=== PATIENT | male | born 1965 | race Caucasian/White ===

== ENCOUNTER → 2021-04-08 | Outpatient (CLI) | payer OTHER ==
--- NOTE | 2021-04-08 12:05 | XR ---
Left hand HISTORY: Pain for 2 weeks following work injury, Q29.377T 3 views of the left hand, no comparisons Flexion deformity is noted at the fifth digit. Bone mineralization, joint spaces are maintained. Smal l benign bony excrescence is noted at the lateral aspect of the distal portion of the distal phalanx of the third digit left hand, possible small osteochondroma. Lateral exam not optimally positioned. IMPRESSION: Flexion deformity fifth digit, correlate for possible tendon injury. Possible osteochondr volodymyr third digit distally.
== END | disposition home or self-care (01) ==
LOC: RADXRMAIN 11:35
PROVIDERS: ATTEND Emergency Medicine
DX: M79.642 Pain in left hand (principal); S69.92XA Unspecified injury of left wrist, hand and finger(s), initial encounter

== ENCOUNTER → 2021-08-09 | Outpatient (CLI) | payer OTHER ==
--- NOTE | 2021-08-09 13:27 | XR ---
EXAMINATION TYPE: XR cervical spine comp DATE OF EXAM: 08/09/2021 COMPARISON: 06/01/2014 HISTORY: Numbness tingling in bilateral hands TECHNIQUE: 5 view cervical spine FINDINGS: Mild left foraminal narrowing of C3-4 may be present. Remaining foramen are patent. Tip of the odontoid is limited with overlying occiput. Disc heights appear preserved. Vertebral body heights are preserved. Posterior spinal lamellar line i s normal. Mild anterior vertebral body spurring is present C4-C6. IMPRESSION: 1. Mild foraminal narrowing left C3-4. 2. Minimal anterior vertebral body spurring.
== END | disposition home or self-care (01) ==
LOC: RADXRMAIN 10:09
PROVIDERS: ATTEND Family Medicine
DX: M99.71 Connective tissue and disc stenosis of intervertebral foramina of cervical region (principal); M25.78 Osteophyte, vertebrae
CPT/HCPCS: 72050

== ENCOUNTER 2023-08-12 06:26 | Observation (INO) | payer OTHER ==
--- NOTE | 2023-08-12 07:38 | ED ---
Abdominal Pain HPI - General Chief Complaint: Abdominal Pain Stated Complaint: abd pain Time Seen by Provider: 08/12/23 06:33 Source: patient, RN notes reviewed Mode of arrival: ambulatory Limitations: no limitations - History of Present Illness Initial Comments: 58-year-old male presents emergency department with chief complaint of abdominal pain. Patient states he has epigastric discomfort he states that counter it radiates across his abdomen. He does admit that he has some sensation of tightness in his throat denies any significant known of reflux issues. He denies fevers, chills, prior cardiac disease denies any prior abdominal surgeries. He states he feels very bloated, distended. - Related Data Home Medications Medication Instructions Recorded Confirmed Rosuvastatin Calcium 5 mg PO DAILY 08/12/23 08/12/23 Allergies Allergy/AdvReac Type Severity Reaction Status Date / Time No Known Allergies Allergy Verified 08/12/23 10:07 Review of Systems ROS Statement: Those systems with pertinent positive or pertinent negative responses have been documented in the HPI. ROS Other: All systems not noted in ROS Statement are negative. Past Medical History Past Medical History: No Reported History History of Any Multi-Drug Resistant Organisms: None Reported Past Surgical History: Orthopedic Surgery Additional Past Surgical History / Comment(s): hand Past Psychological History: No Psychological Hx Reported Past Alcohol Use History: Occasional Past Drug Use History: None Reported General Exam Limitations: no limitations General appearance: alert, in no apparent distress Head exam: Present: atraumatic, normocephalic, normal inspection Neck exam: Present: normal inspection, full ROM. Absent: tenderness, meningismus, lymphadenopathy Respiratory exam: Present: normal lung sounds bilaterally. Absent: respiratory distress, wheezes, rales, rhonchi, stridor Cardiovascular Exam: Present: regular rate, normal rhythm, normal heart sounds. Absent: systolic murmur, diastolic murmur, rubs, gallop, clicks GI/Abdominal exam: Present: soft, tenderness, normal bowel sounds. Absent: distended, guarding, rebound, rigid Back exam: Absent: CVA tenderness (R), CVA tenderness (L) Neurological exam: Present: alert Skin exam: Present: warm, dry, intact, normal color. Absent: rash Course Vital Signs 08/12/23 06:27 Temperature 97.8 F Pulse Rate 91 Respiratory 18 Rate Blood Pressure 152/92 O2 Sat by Pulse 100 Oximetry Medical Decision Making - Medical Decision Making Was pt. sent in by a medical professional or institution ([facility], GAME TECHNICIAN, urgent care, hospital, or penitentiary...) When possible be specific @ -No Did you speak to anyone other than the patient for history (EMS, parent, family, police, friend...)? What history was obtained from this source @ -No Did you review nursing and triage notes (agree or disagree)? Why? @ -I reviewed and agree with nursing and triage notes Were old charts reviewed (outside hosp., previous admission, EMS record, old EKG, old radiological studies, urgent care reports/EKG's, penitentiary records)? Report findings @ -No old charts were reviewed Differential Diagnosis (chest pain, altered mental status, abdominal pain women, abdominal pain men, vaginal bleeding, weakness, fever, dyspnea, syncope, headache, dizziness, GI bleed, back pain, seizure, CVA, palpatations, mental health, musculoskeletal)? @ -[Differential Abdominal Pain Men: Appendicitis, cholecystitis, diverticulosis, ischemic bowel, pancreatitis, hepatitis, UTI, gastroenteritis, AAA, incarcerated hernia, bowel obstruction, constipation, inflammatory bowel, hepatitis, peptic ulcer disease, splenic infarction, perforated viscus, testicular torsion, this is not meant to be an all-inclusive list EKG interpreted by me (3pts min.). @ -As above X-rays interpreted by me (1pt min.). @ -[Chest extremity no acute cardiopulmonary process X-ray KUB nonspecific bowel gas pattern CT interpreted by me (1pt min.). @ -None done U/S interpreted by me (1pt. min.). @ -[Altered gallbladder showing large essentially non mobile gallstone within the neck What testing was considered but not performed or refused? (CT, X-rays, U/S, labs)? Why? @ -None What meds were considered but not given or refused? Why? @ -None Did you discuss the management of the patient with other professionals (professionals i.e. [facility], GAME TECHNICIAN, lab, RT, psych nurse, addiction social worker, sprinkling system installer, teacher, data officer, case advocate)? Give summary @ -[Dr. Machado for admission regarding acute cholecystitis with cholelithiasis Was smoking cessation discussed for >3mins.? @ -No Was critical care preformed (if so, how long)? @ -No Were there social determinants of health that impacted care today? How? (Homelessness, low income, unemployed, alcoholism, drug addiction, transportation, low edu. Level, literacy, decrease access to med. care, long term, rehab)? @ -No Was there de-escalation of care discussed even if they declined (Discuss DNR or withdrawal of care, Hospice)? DNR status @ -No What co-morbidities impacted this encounter? (DM, HTN, Smoking, COPD, CAD, Cancer, CVA, ARF, Chemo, Hep., AIDS, mental health diagnosis, sleep apnea, morbid obesity)? @ -None Was patient admitted / discharged? Hospital course, mention meds given and route, prescriptions, significant lab abnormalities, going to OR and other pertinent info. @ -[Admitted patient found to have gallstone within the gallbladder neck causing persistent pain. Patient was started on antibiotics admitted surgeon will have cardiac clearance. Undiagnosed new problem with uncertain prognosis? @ -No Drug Therapy requiring intensive monitoring for toxicity (Heparin, Nitro, Insulin, Cardizem)? @ -No Were any procedures done? @ -No Diagnosis/symptom? @ -Acute cholecystitis, cholelithiasis Acute, or Chronic, or Acute on Chronic? @ -[Acute Uncomplicated (without systemic symptoms) or Complicated (systemic symptoms)? @ -Complicated Side effects of treatment? @ -[No Exacerbation, Progression, or Severe Exacerbation? @ -No Poses a threat to life or bodily function? How? (Chest pain, [place], MT, pneumonia, PE, COPD, DKA, ARF, appy, cholecystitis, CVA, Diverticulitis, Homicidal, Suicidal, threat to staff... and all critical care pts) @ -[Yes surgical risk - Lab Data Result diagrams: 08/12/23 07:33 08/12/23 07:33 Lab Results 08/12/23 08/12/23 08/12/23 Range/Units 07:33 07:33 07:33 WBC 7.6 (3.8-10.6) k/uL RBC 4.46 (4.30-5.90) m/uL Hgb 14.6 (13.0-17.5) gm/dL Hct 43.9 (39.0-53.0) % MCV 98.4 (80.0-100.0) fL MCH 32.6 (25.0-35.0) pg MCHC 33.2 (31.0-37.0) g/dL RDW 12.4 (11.5-15.5) % Plt Count 212 (150-450) k/uL MPV 8.0 Neutrophils % 76 % Lymphocytes % 15 % Monocytes % 6 % Eosinophils % 2 % Basophils % 1 % Neutrophils # 5.7 (1.3-7.7) k/uL Lymphocytes # 1.1 (1.0-4.8) k/uL Monocytes # 0.5 (0-1.0) k/uL Eosinophils # 0.2 (0-0.7) k/uL Basophils # 0.1 (0-0.2) k/uL Sodium 138 (137-145) mmol/L Potassium 4.3 (3.5-5.1) mmol/L Chloride 108 H (98-107) mmol/L Carbon Dioxide 28 (22-30) mmol/L Anion Gap 2 mmol/L BUN 14 (9-20) mg/dL Creatinine 1.03 (0.66-1.25) mg/dL Est GFR (CKD-EPI)AfAm >90 (>60 ml/min/1.73 sqM) Est GFR (CKD-EPI)NonAf 81 (>60 ml/min/1.73 sqM) Glucose 96 (74-99) mg/dL Calcium 9.0 (8.4-10.2) mg/dL Total Bilirubin 0.4 (0.2-1.3) mg/dL AST 30 (17-59) U/L ALT 42 (4-49) U/L Alkaline Phosphatase 97 (38-126) U/L Troponin I <0.012 (0.000-0.034) ng/mL Total Protein 6.9 (6.3-8.2) g/dL Albumin 4.2 (3.5-5.0) g/dL Amylase 57 (30-110) U/L Lipase 112 (23-300) U/L - EKG Data -: EKG Interpreted by [facility] EKG Comments: EKG performed at 7: 47 sinus rhythm with rate of 71 KS 117 QRS 95 QT/QTc 402/425 Disposition Clinical Impression: Cholelithiasis with cholecystitis Disposition: ADMITTED IP TO THIS [facility] Condition: Fair Time of Disposition: 09:26
[2023-08-12] MEDS: FAMOTIDINE 20 MG/2 ML VIAL IV STA (07:41)
[2023-08-12] MEDS: SODIUM CHLORIDE 0.9% 1,000 ML IV STA (07:41)
[2023-08-12 07:46] LABS: Basophils # (A) 0.1 k/uL (0-0.2); Basophils % (A) 1 %; Eosinophils # (A) 0.2 k/uL (0-0.7); Eosinophils % (A) 2 %; HCT 43.9 % (39.0-53.0); HGB 14.6 gm/dL (13.0-17.5); Lymphocytes # (A) 1.1 k/uL (1.0-4.8); Lymphocytes % (A) 15 %; MCH 32.6 pg (25.0-35.0); MCHC 33.2 g/dL (31.0-37.0); MCV 98.4 fL (80.0-100.0); Monocytes # (A) 0.5 k/uL (0-1.0); Monocytes % (A) 6 %; Neutrophils # (A) 5.7 k/uL (1.3-7.7); Neutrophils % (A) 76 %; Platelet Count 212 k/uL (150-450); RBC 4.46 m/uL (4.30-5.90); RDW 12.4 % (11.5-15.5); WBC 7.6 k/uL (3.8-10.6)
[2023-08-12] MEDS: MAG HYDROX/AL HYDROX/SIMETH 30 ML, HYOSCYAMINE ELIXIR 10 ML PO STA (07:46)
[2023-08-12] MEDS: METOCLOPRAMIDE 5 MG/ML 2 ML VIAL IVP STA (07:48)
[2023-08-12 08:04] LABS: ALT 42 U/L (4-49); AST 30 U/L (17-59); African American GFR (CKD) >90 (>60 ml/min/1.73 sqM); Albumin 4.2 g/dL (3.5-5.0); Alkaline Phosphatase 97 U/L (38-126); Amylase 57 U/L (30-110); Anion Gap 2 mmol/L; Blood Urea Nitrogen 14 mg/dL (9-20); Carbon Dioxide 28 mmol/L (22-30); Chloride 108 mmol/L (98-107); Glucose 96 mg/dL (74-99); Lipase 112 U/L (23-300); Non-African American GFR(CKD) 81 (>60 ml/min/1.73 sqM); Potassium 4.3 mmol/L (3.5-5.1); Sodium 138 mmol/L (137-145); Total Bilirubin 0.4 mg/dL (0.2-1.3); Total Protein 6.9 g/dL (6.3-8.2)
--- NOTE | 2023-08-12 08:29 | XR ---
EXAMINATION TYPE: XR chest 1V DATE OF EXAM: 08/12/2023 8:13 AM CLINICAL INDICATION:Male, 58 years old with history of pain; COMPARISON: None TECHNIQUE: XR chest 1V Frontal view of the chest. FINDINGS: Lungs/Pleura: There is no evidence of pleural effusion, focal consolidation, or pneumothorax. Pulmonary vascularity: Unremarkable. Heart/mediastinum: Cardiomediastinal silhouette is unremarkable. Musculoskeletal: No acute osseous pathology. Other findings: None IMPRESSION: No acute cardiopulmonary disease/process.
--- NOTE | 2023-08-12 08:31 | XR ---
EXAMINATION TYPE: XR KUB DATE OF EXAM: 08/12/2023 8:13 AM CLINICAL INDICATION:Male, 58 years old with history of abdominal pain; COMPARISON: None. TECHNIQUE: Two views of the abdomen were obtained. FINDINGS: The bowel gas pattern is nonspecific without dilated loops of small or large bowel. There i s no evidence for organomegaly or pneumoperitoneum. The osseous structures are intact. Multiple ca lcifications are seen over the pelvis. Fecal material and gas are demonstrated throughout the colon a nd rectum. IMPRESSION: Nonspecific bowel gas pattern without radiographic evidence for acute process. Nonspecific ossification projecting over the pelvis.
--- NOTE | 2023-08-12 09:27 | US ---
EXAMINATION TYPE: US gallbladder DATE OF EXAM: 08/12/2023 COMPARISON: NONE CLINICAL INDICATION: Male, 58 years old with history of pain; bloating and pain in abd for 1 month TECHNIQUE: Multiple sonographic images of the right upper quadrant are obtained. FINDINGS: EXAM MEASUREMENTS: Liver Length: 17.3 cm Gallbladder Wall: 0.3 cm CBD: 0.6 cm Right Kidney: 10.1 x 4.7 x 5.3 cm Pancreas: wnl Liver: intercostal imaging due to bowel gas, wnl Gallbladder: single stone, slightly mobile when rolled LLD = 1.5cm, wall is borderline no pericholec ystic fluid. Evidence for sonographic Corley's sign: yes CBD: wnl Right Kidney: wnl IMPRESSION: Cholelithiasis with positive sonographic Corley's sign per drying tumbler operator. Correlate for signs and sympt oms of acute cholecystitis. Consider nuclear medicine HIDA scan for confirmation.
[2023-08-12] MEDS ORDERED: HYDROmorphone 0.5 MG/0.5 ML SYRINGE IVP PRN (09:45)
[2023-08-12] MEDS ORDERED: NALOXONE 0.4 MG/ML 1 ML VIAL IV PRN (09:45)
[2023-08-12] MEDS ORDERED: HYDROmorphone 1 MG/ML 1 ML SYRINGE IVP PRN (09:45)
[2023-08-12] MEDS ORDERED: ONDANSETRON 4 MG/2 ML VIAL IVP PRN (09:45)
[2023-08-12] MEDS: PIPERACILLIN-TAZOBACTAM 3.375 GM in SODIUM CHLORIDE 0.9% 100 ML IVPB SCH (12:36)
--- NOTE | 2023-08-12 13:53 | P.GSHP ---
History of Present Illness H&P Date: 08/12/23 CHIEF COMPLAINT: Abdominal pain HISTORY OF PRESENT ILLNESS: This is a 58-year-old male who presented to the hospital with complaints of pain across the upper abdomen started at 230 this morning. Yesterday afternoon he had eaten 2 coney dogs. He has had cookies through the evening and is well as 4 beers. Patient reports that the pain became very severe and was having discomfort in his throat as well. Patient reports having a similar symptom about a month ago after eating an apple. However, this time the pain was not going away on its own. Patient had gallbladder ultrasound showing evidence of gallstones positive Corley sign and to correlate for acute cholecystitis. Patient denies any cardiac history. He is a smoker. is he denies any chest pain or shortness of breath. He denies a ny prior abdominal surgeries PAST MEDICAL HISTORY: Hyperlipidemia PAST SURGICAL HISTORY: See list. MEDICATIONS: See list. ALLERGIES: See list. SOCIAL HISTORY: No illicit drug use. Nicotine dependence. Patient drinks about 4 alcoholic beverages 3 times a week. REVIEW OF SYSTEMS: CONSTITUTIONAL: Denies fever or chills. HEENT: Denies blurred vision, vision changes, or eye pain. Denies hemoptysis ENDOCRINE: Denies heat or cold intolerance. CARDIOVASCULAR: Denies chest pain or pressure. RESPIRATORY: No shortness of breath. GASTROINTESTINAL: Denies abdominal pain. Denies nausea or vomiting. NEURO: Denies history of seizures. PSYCH: No depression or suicidal ideation HEMATOLOGIC: Denies bleeding disorders. LYMPHATIC: The patient denies any lumps and bumps around the neck. GENITOURINARY: Denies any blood in urine or increased urinary frequency. MUSCULOSKELETAL: Denies myalgias. Denies joint swelling. Denies decreased range of motion beyond patients baseline. SKIN: Denies pruitis. Denies rash. PHYSICAL EXAM: VITAL SIGNS: Reviewed GENERAL: Well-developed in no acute distress. HEENT: No sclera icterus. Extraocular movements grossly intact. Moist buccal mucosa. Head is atraumatic, normocephalic. Hears conversational speech. No nasal drainage. NECK: Supple without lymphadenopathy. CHEST: Non-labored respirations and equal bilateral excursions. CARDIOVASCULAR: Palpable 2+ radial pulses. ABDOMEN: Soft. Nondistended. Tenderness palpation of the right upper quadrant MUSCULOSKELETAL: No clubbing or cyanosis. NEUROLOGIC: No focal or lateralizing signs. Cranial nerves II through XII grossly intact. PSYCH: Appropriate affect. Alert and oriented to person, place and time. SKIN: Well perfused. Good skin turgor. LABORATORY DATA: WBC 7.6 Hgb 14.6 platelets 212 Sodium is 138 potassium is 4.3 creatinine 1.03 LFTs normal, lipase 112 Troponin negative IMAGING: Gallbladder ultrasound reports cholelithiasis with positive Corley sign. Correlate for signs and symptoms of acute cholecystitis. KUB x-ray nonspecific bowel gas pattern no acute process. Chest x-ray no acute cardiopulmonary process ASSESSMENT: 1. Acute cholecystitis with cholelithiasis and positive Corley sign on ultrasound 2. Nicotine dependence PLAN: -Patient scheduled for Robotic cholecystectomy tomorrow, 08/13/[address] Castaneda -Low-fat diet today -N.p.o. after midnight -Continue antibiotics -Continue IV fluids -Continue pain medication as needed -Cardiology consulted for cardiac clearance -Echo ordered Physician Sheet Metal Superintendent note has been reviewed by physician. Signing provider agrees with the documented findings, assessment, and plan of care. Past Medical History Past Medical History: No Reported History History of Any Multi-Drug Resistant Organisms: None Reported Past Surgical History: Orthopedic Surgery Additional Past Surgical History / Comment(s): hand Past Psychological History: No Psychological Hx Reported Past Alcohol Use History: Occasional Past Drug Use History: None Reported Medications and Allergies Home Medications Medication Instructions Recorded Confirmed Type Rosuvastatin Calcium 5 mg PO DAILY 08/12/23 08/12/23 History Allergies Allergy/AdvReac Type Severity Reaction Status Date / Time No Known Allergies Allergy Verified 08/12/23 10:07 Surgical - Exam Vital Signs Temp Pulse Resp BP Pulse Ox 97.8 F 91 18 152/92 100 08/12/23 06:27 08/12/23 06:27 08/12/23 06:27 08/12/23 06:27 08/12/23 06:27 Results - Labs 08/12/23 07:33 08/12/23 07:33 Abnormal Lab Results - Last 24 Hours (Table) 08/12/23 Range/Units 07:33 Chloride 108 H (98-107) mmol/L Diabetes panel 08/12/23 Range/Units 07:33 Sodium 138 (137-145) mmol/L Potassium 4.3 (3.5-5.1) mmol/L Chloride 108 H (98-107) mmol/L Carbon Dioxide 28 (22-30) mmol/L BUN 14 (9-20) mg/dL Creatinine 1.03 (0.66-1.25) mg/dL Glucose 96 (74-99) mg/dL Calcium 9.0 (8.4-10.2) mg/dL AST 30 (17-59) U/L ALT 42 (4-49) U/L Alkaline Phosphatase 97 (38-126) U/L Total Protein 6.9 (6.3-8.2) g/dL Albumin 4.2 (3.5-5.0) g/dL Calcium panel 08/12/23 Range/Units 07:33 Calcium 9.0 (8.4-10.2) mg/dL Albumin 4.2 (3.5-5.0) g/dL Pituitary panel 08/12/23 Range/Units 07:33 Sodium 138 (137-145) mmol/L Potassium 4.3 (3.5-5.1) mmol/L Chloride 108 H (98-107) mmol/L Carbon Dioxide 28 (22-30) mmol/L BUN 14 (9-20) mg/dL Creatinine 1.03 (0.66-1.25) mg/dL Glucose 96 (74-99) mg/dL Calcium 9.0 (8.4-10.2) mg/dL Adrenal panel 08/12/23 Range/Units 07:33 Sodium 138 (137-145) mmol/L Potassium 4.3 (3.5-5.1) mmol/L Chloride 108 H (98-107) mmol/L Carbon Dioxide 28 (22-30) mmol/L BUN 14 (9-20) mg/dL Creatinine 1.03 (0.66-1.25) mg/dL Glucose 96 (74-99) mg/dL Calcium 9.0 (8.4-10.2) mg/dL Total Bilirubin 0.4 (0.2-1.3) mg/dL AST 30 (17-59) U/L ALT 42 (4-49) U/L Alkaline Phosphatase 97 (38-126) U/L Total Protein 6.9 (6.3-8.2) g/dL Albumin 4.2 (3.5-5.0) g/dL
--- NOTE | 2023-08-12 15:05 | P.CRDCN ---
History of Present Illness History of present illness: HISTORY OF PRESENT ILLNESS: This is a 58-year-old male with a past medical history significant for hyperlipidemia. Patient used to follow in the office with Dr. Caceres but has not been seen since 2019. We have been asked to see the patient in consultation for cardiac clearance. Patient examined at the bedside in the emergency room. Patient presented to the hospital with chief complaint of abdominal pain and epigastric discomfort. Patient states yesterday he ate a few coney dogs and about 6 oreos with milk and afterwards began to have abdominal discomfort. In the ER he received Maalox, Pepcid, and Reglan. He states he had relief of his pain with these medications. He reports some mild right upper quadrant discomfort at the time of examination. The patient states he is able to walk up a flight of stairs or walk 1 block without having significant chest pain or shortness of breath. 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 He states this has been chronic for about the past 2 years and has not worsened recently. He is a current cigarette smoker and smokes 1-1/2 packs/day. DIAGNOSTICS: - EKG reveals sinus mechanism with no signs of acute ischemia. - Chest xray negative for acute process. - KUB x-ray: Nonspecific bowel gas pattern without radiographic evidence for acute process. Nonspecific ossification projecting over the pelvis - Gallbladder ultrasound: Cholelithiasis with positive sonographic Corley sign per bobbin coil winder. Correlate for signs and symptoms of acute cholecystitis. - Laboratory data: WBC 7.6. Hemoglobin 14.6. Platelet count 212. Sodium 138. Potassium 4.3. BUN 14. Creatinine 1.03. AST 30. ALT 42. Troponin negative x 1. Amylase 57. Lipase 112. - Current home cardiac medications include rosuvastatin 5 mg daily. - Most recent echocardiogram obtained in January 2020 reveals ejection fraction 50%, mild MR, mild TR, and moderate pulmonary hypertension. -Patient underwent Cardiolyte stress test in January 2020 which was negative for ischemia REVIEW OF SYSTEMS: At the time of my exam: CONSTITUTIONAL: Denies fever or chills. HEENT: Denies blurred vision, vision changes, or eye pain. Denies hemoptysis CARDIOVASCULAR: Denies chest pain. Denies orthopnea. Denies PND. Denies palpitations RESPIRATORY: Denies shortness of breath. GASTROINTESTINAL: Denies abdominal pain. Denies nausea or vomiting. HEMATOLOGIC: Denies bleeding disorders. GENITOURINARY: Denies any blood in urine. SKIN: Denies pruitis. Denies rash. PHYSICAL EXAM: VITAL SIGNS: Reviewed. GENERAL: Well-developed in no acute distress. HEENT: Head is normocephalic. Pupils are equal, round. Sclerae anicteric. Mucous membranes of the mouth are moist. Neck supple. No JVD or thyromegaly LUNGS: Respirations even and unlabored. Lungs essentially clear to auscultation bilaterally. HEART: Regular rate and rhythm. S1 and S2 heard. ABDOMEN: Soft. Tenderness upon palpation of right upper quadrant. EXTREMITIES: Normal range of motion. No clubbing or cyanosis. Peripheral pu lses intact. No lower extremity edema NEUROLOGIC: Awake and alert. Oriented x 3. ASSESSMENT: Abdominal pain Cholelithiasis with possible acute cholecystitis Hyperlipidemia Moderate pulmonary hypertension Nicotine dependence, patient smokes 1 and half packs per day PLAN: 2D echo has been ordered. Await results Resume home cardiac medications Smoking cessation recommended Patient is tentatively scheduled for a robotic cholecystectomy tomorrow with Dr. Castaneda There are no absolute contraindications for patient to proceed with surgery from a cardiology standpoint Further recommendations pending patient course Nurse practitioner note has been reviewed by physician. Signing provider agrees with the documented findings, assessment, and plan of care documented by RECLAMATION FURNACE OPERATOR as a scribe. Past Medical History Past Medical History: No Reported History History of Any Multi-Drug Resistant Organisms: None Reported Past Surgical History: Orthopedic Surgery Additional Past Surgical History / Comment(s): hand Past Psychological History: No Psychological Hx Reported Past Alcohol Use History: Occasional Past Drug Use History: None Reported Medications and Allergies Home Medications Medication Instructions Recorded Confirmed Type Rosuvastatin Calcium 5 mg PO DAILY 08/12/23 08/12/23 History Allergies Allergy/AdvReac Type Severity Reaction Status Date / Time No Known Allergies Allergy Verified 08/12/23 10:07 Physical Exam Vitals: Vital Signs Temp Pulse Resp BP Pulse Ox 08/12/23 06:27 97.8 F 91 18 152/92 100 Intake and Output 08/11/23 08/12/23 08/12/23 22:59 06:59 14:59 Other: Weight 90.718 kg Results 08/12/23 07:33 08/12/23 07:33 Cardiac Enzymes 08/12/23 08/12/23 Range/Units 07:33 07:33 AST 30 (17-59) U/L Troponin I <0.012 (0.000-0.034) ng/mL CBC 08/12/23 Range/Units 07:33 WBC 7.6 (3.8-10.6) k/uL RBC 4.46 (4.30-5.90) m/uL Hgb 14.6 (13.0-17.5) gm/dL Hct 43.9 (39.0-53.0) % Plt Count 212 (150-450) k/uL Comprehensive Metabolic Panel 08/12/23 Range/Units 07:33 Sodium 138 (137-145) mmol/L Potassium 4.3 (3.5-5.1) mmol/L Chloride 108 H (98-107) mmol/L Carbon Dioxide 28 (22-30) mmol/L BUN 14 (9-20) mg/dL Creatinine 1.03 (0.66-1.25) mg/dL Glucose 96 (74-99) mg/dL Calcium 9.0 (8.4-10.2) mg/dL AST 30 (17-59) U/L ALT 42 (4-49) U/L Alkaline Phosphatase 97 (38-126) U/L Total Protein 6.9 (6.3-8.2) g/dL Albumin 4.2 (3.5-5.0) g/dL Current Medications Generic Name Dose Route Start Last Admin Trade Name Freq PRN Reason Stop Dose Admin Hydromorphone HCl 0.5 mg 08/12/23 09:45 Hydromorphone 0.5 Mg/0.5 Ml Syringe IVP Q3HR PRN Moderate Pain (Scale 4 to 6) Hydromorphone HCl 1 mg 08/12/23 09:45 Hydromorphone 1 Mg/Ml 1 Ml Syringe IVP Q3HR PRN Severe Pain (Scale 7 to 10) Sodium Chloride 1,000 mls @ 75 mls/hr 08/12/23 09:45 Saline 0.9% IV .[id number] NARCISO Piperacillin Sod/Tazobactam 100 mls @ 25 mls/hr 08/12/23 11:00 Sod 3.375 gm/ Sodium Chloride IVPB Q8H NARCISO Protocol Naloxone HCl 0.2 mg 08/12/23 09:45 Naloxone 0.4 Mg/Ml 1 Ml Vial IV Q2M PRN Opioid Reversal Ondansetron HCl 4 mg 08/12/23 09:45 Ondansetron 4 Mg/2 Ml Vial IVP Q8HR PRN Nausea And Vomiting Intake and Output 08/11/23 08/12/23 08/12/23 22:59 06:59 14:59 Other: Weight 90.718 kg 08/12/23 07:33 08/12/23 07:33
[2023-08-12] MEDS: SODIUM CHLORIDE 0.9% 1,000 ML IV SCH (16:54)
[2023-08-13] MEDS: ATORVASTATIN 10 MG TAB PO SCH (10:02)
[2023-08-13 10:18] LABS: Basophils # (A) 0.04 X 10*3/uL (0.00-0.10); Basophils % (A) 0.6 %; Eosinophils % (A) 3.1 %; Lymphocytes # (A) 1.16 X 10*3/uL (0.90-5.00); Lymphocytes % (A) 17.9 %; MCH 31.9 pg (27.0-32.0); MCHC 32.5 g/dL (32.0-37.0); Monocytes # (A) 0.56 X 10*3/uL (0.20-1.00); Monocytes % (A) 8.6 %; NRBC Per 100 WBC 0 X 10*3/uL (0.00-0.01); Neutrophils % (A) 69.3 %; Platelet Count 213 X 10*3/uL (140-440); RBC 4.08 X 10*6/uL (4.40-5.60); RDW 12.8 % (11.5-14.5); WBC 6.49 X 10*3/uL (4.50-10.00)
[2023-08-13 10:41] LABS: BUN/Creat Ratio 8.15 Ratio (12.00-20.00); Blood Urea Nitrogen 10.6 mg/dL (9.0-27.0); Calcium 8.7 mg/dL (8.7-10.3); Carbon Dioxide 25.6 mmol/L (21.6-31.8); Chloride 107 mmol/L (96-109); Glucose 101 mg/dL (70-110); Potassium 4.3 mmol/L (3.5-5.5); Sodium 142 mmol/L (135-145)
--- NOTE | 2023-08-13 11:16 | CA ---
Transthoracic Echo Report Name: Dereck Schumacher Age: 58 Gender: M : 1965 Exam Date: 08/13/2023 10:20 Exam Location: [facility] Ht (in): 69 Wt (lb): 200 Ordering Physician: Paige Castaneda MD Attending/Referring Phys: [id number] Ventura Director Credit Risk Esperanza Estes RDCS Procedure CPT: Indications: Chest Pain Cardiac Hx: Technical Quality: Fair Contrast 1: Total Dose (mL): Contrast 2: Total Dose (mL): MEASUREMENTS (Male / Female) Normal Values 2D ECHO LV Diastolic Diameter PLAX 4.5 cm 4.2 - 5.9 / 3.9 - 5.3 cm LV Systolic Diameter PLAX 3.3 cm IVS Diastolic Thickness 1.0 cm 0.6 - 1.0 / 0.6 - 0.9 cm LVPW Diastolic Thickness 1.0 cm 0.6 - 1.0 / 0.6 - 0.9 cm LV Relative Wall Thickness 0.4 RV Internal Dim ED PLAX 2.7 cm LA Systolic Diameter LX 3.5 cm 3.0 - 4.0 / 2.7 - 3.8 cm LV Diastolic Volume MOD BP 76.7 cm??? 67 - 155 / 56 - 104 cm??? LV Systolic Volume MOD BP 35.8 cm??? 22 - 58 / 19 - 49 cm??? LV Ejection Fraction MOD BP 53.3 % >= 55 % LV Cardiac Index MOD BP 1211.9 cm???/min???m??? LV Diastolic Volume MOD 4C 73.7 cm??? LV Systolic Volume MOD 4C 36.2 cm??? LV Ejection Fraction MOD 4C 51.0 % LV Cardiac Index MOD 4C 1114.6 cm???/min???m??? LV Diastolic Length 4C 7.3 cm LV Systolic Length 4C 6.0 cm LV Diastolic Volume MOD 2C 79.4 cm??? LV Systolic Volume MOD 2C 31.9 cm??? LV Ejection Fraction MOD 2C 59.9 % LV Cardiac Index MOD 2C 1409.6 cm???/min???m??? LV Diastolic Length 2C 7.5 cm LV Systolic Length 2C 6.7 cm LA Volume 51.3 cm??? 18 - 58 / 22 - 52 cm??? LA Volume Index 24.2 cm???/m??? 16 - 28 cm???/m??? M-MODE Aortic Root Diameter MM 3.4 cm MV E Point Septal Separation 0.3 cm AV Cusp Separation MM 2.2 cm DOPPLER AV Peak Velocity 155.6 cm/s AV Peak Gradient 9.7 mmHg MV Area PHT 3.2 cm??? Mitral E Point Velocity 80.3 cm/s Mitral A Point Velocity 46.6 cm/s Mitral E to A Ratio 1.7 MV Deceleration Time 237.2 ms MV E' Velocity 10.1 cm/s Mitral E to MV E' Ratio 8.0 FINDINGS Left Ventricle Left ventricular ejection fraction is estimated at 50-55 %. Left ventricular cavity size normal. Left ventricular wall thickness normal. No obvious regional wall motion abnormalities. Right Ventricle Normal right ventricular size. Unable to estimate the right ventricular systolic pressure. Right Atrium Normal right atrial size. Left Atrium Normal left atrial size. Mitral Valve Structurally normal mitral valve. Trace mitral regurgitation. Aortic Valve Trileaflet aortic valve. No aortic valve stenosis or regurgitation. Tricuspid Valve Structurally normal tricuspid valve. No tricuspid regurgitation. Pulmonic Valve Structurally normal pulmonic valve. No pulmonic regurgitation. Pericardium No pericardial effusion. Aorta Normal size aortic root and proximal ascending aorta. CONCLUSIONS Left ventricular ejection fraction 50-55%. Trace mitral regurgitation No tricuspid regurgitation No pericardial effusion Previewed by: Dr. Chencho Carpenter DO (Electronically Signed) Final Date: 13 August 2023 11:15
--- NOTE | 2023-08-13 11:34 | P.PN ---
Subjective HISTORY OF PRESENT ILLNESS: This is a 58-year-old male with a past medical history significant for hyperlipidemia. Patient used to follow in the office with Dr. Caceres but has not been seen since 2019. We have been asked to see the patient in consultation for cardiac clearance. Patient examined at the bedside in the emergency room. Patient presented to the hospital with chief complaint of abdominal pain and epigastric discomfort. Patient states yesterday he ate a few coney dogs and about 6 oreos with milk and afterwards began to have abdominal discomfort. In the ER he received Maalox, Pepcid, and Reglan. He states he had relief of his pain with these medications. He reports some mild right upper quadrant discomfort at the time of examination. The patient states he is able to walk up a flight of stairs or walk 1 block without having significant chest pain or shortness of breath. 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 He states this has been chronic for about the past 2 years and has not worsened recently. He is a current cigarette smoker and smokes 1-1/2 packs/day. DIAGNOSTICS: - EKG reveals sinus mechanism with no signs of acute ischemia. - Chest xray negative for acute process. - KUB x-ray: Nonspecific bowel gas pattern without radiographic evidence for acute process. Nonspecific ossification projecting over the pelvis - Gallbladder ultrasound: Cholelithiasis with positive sonographic Corley sign per literacy specialist. Correlate for signs and symptoms of acute cholecystitis. - Laboratory data: WBC 7.6. Hemoglobin 14.6. Platelet count 212. Sodium 138. Potassium 4.3. BUN 14. Creatinine 1.03. AST 30. ALT 42. Troponin negative x 1. Amylase 57. Lipase 112. - Current home cardiac medications include rosuvastatin 5 mg daily. - Most recent echocardiogram obtained in January 2020 reveals ejection fraction 50%, mild MR, mild TR, and moderate pulmonary hypertension. -Patient underwent Cardiolyte stress test in January 2020 which was negative for ischemia 08/13/2023 Patient examined this morning at the bedside. Patient denies chest pain or pressure. He denies shortness of breath. Vital signs are stable. Echo cardiogram completed revealing ejection fraction 50 to 55% with trace MR. PHYSICAL EXAM: VITAL SIGNS: Reviewed. GENERAL: Well-developed in no acute distress. HEENT: Head is normocephalic. Pupils are equal, round. Sclerae anicteric. Mucous membranes of the mouth are moist. Neck supple. No JVD or thyromegaly LUNGS: Respirations even and unlabored. Lungs essentially clear to auscultation bilaterally. HEART: Regular rate and rhythm. S1 and S2 heard. ABDOMEN: Soft. Tenderness upon palpation of right upper quadrant. EXTREMITIES: Normal range of motion. No clubbing or cyanosis. Peripheral puls es intact. No lower extremity edema NEUROLOGIC: Awake and alert. Oriented x 3. ASSESSMENT: Abdominal pain Cholelithiasis with possible acute cholecystitis Hyperlipidemia Moderate pulmonary hypertension Nicotine dependence, patient smokes 1 and half packs per day PLAN: Continue current cardiac medications Smoking cessation recommended Patient is scheduled for a robotic cholecystectomy today with Dr. Castaneda There are no absolute contraindications for patient to proceed with surgery from a cardiology standpoint We will follow on an as-needed basis. Please call with questions or concerns. Nurse practitioner note has been reviewed by physician. Signing provider agrees with the documented findings, assessment, and plan of care documented by [facility] as a scribe. Objective - Vital Signs Vital signs: Vital Signs Temp 98.0 F 08/13/23 07:14 Pulse 73 08/13/23 07:14 Resp 18 08/13/23 07:14 BP 106/69 08/13/23 07:14 Pulse Ox 97 08/13/23 07:14 FiO2 Intake & Output 08/12/23 08/13/23 08/13/23 18:59 06:59 18:59 Intake Total 1000 Balance 1000 Weight 90.718 kg Intake: Intake, IV Titration 1000 Amount Piperacillin-Tazobactam 3 100 .375 gm In Sodium Chloride 0.9% 100 ml @ 25 mls/hr IVPB Q8H NARCISO Rx#: [id number] Sodium Chloride 0.9% 1, 900 000 ml @ 75 mls/hr IV . [id number] NARCISO Rx#:[id number] Other: Voiding Method Toilet # Voids 3 3 - Labs CBC & Chem 7: 08/13/23 07:22 08/13/23 07:22 Labs: Abnormal Lab Results - Last 24 Hours (Table) 08/13/23 08/13/23 Range/Units 07:22 07:22 RBC 4.08 L (4.40-5.60) X 10*6/uL MCV 98.0 H (80.0-97.0) FL BUN/Creatinine Ratio 8.15 L (12.00-20.00) Ratio
[2023-08-13] MEDS: IV FLUID CONTINUATION 1,000 ML IV ONE (13:38)
[2023-08-13] MEDS: ONDANSETRON 4 MG/2 ML VIAL IVP ONE (13:40)
[2023-08-13] MEDS: DEXAMETHASONE SOD PHOSPHATE 4 MG/ML 1 ML VIAL IVP ONE (13:41)
[2023-08-13] MEDS: HEPARIN SODIUM,PORCINE 5,000 UNIT/ML 1 ML VIAL SQ ONE (14:36)
[2023-08-13] MEDS: LIDOCAINE 1%-EPI 1:100,000 50 ML VIAL SQ ONE ×2 (15:10→15:22)
[2023-08-13] MEDS: LACTATED RINGERS 1,000 ML IV ONE (15:41)
[2023-08-13] MEDS: HYDROmorphone 0.5 MG/0.5 ML SYRINGE IVP ONE (16:17)
--- NOTE | 2023-08-13 16:33 | P.OP ---
Date of Procedure: 08/13/23 Description of Procedure: SURGEON: PAIGE CASTANEDA MD PREOPERATIVE DIAGNOSES: 1. Acute cholecystitis 2. Atypical chest pain 3. Tobacco abuse disorder 4. Hyperlipidemia POSTOPERATIVE DIAGNOSES: 1. Acute cholecystitis 2. Atypical chest pain 3. Tobacco abuse disorder 4. Hyperlipidemia OPERATION: Robotic-assisted da Elzbieta Xi laparoscopic cholecystectomy, multiport with FIREFLY ESTIMATED BLOOD LOSS: 5 mL. SPECIMENS REMOVED: Gallbladder. COMPLICATIONS: None. OPERATIVE FINDINGS: 1. Acute cholecystitis INDICATIONS: The patient is a 58-year-old male who presents with symptomatic gallstones. Robotic assisted laparoscopic approach was described. Benefits and risks of the procedure including but not limited to bleeding, infection, injury to the biliary tree was described. Informed consent was obtained. DESCRIPTION OF PROCEDURE: Patient was brought to the operating room, placed in supine position. After general induction, the abdomen had been prepped and draped in standard sterile fashion. The robotic da Elzbieta XI system was primed. After a timeout protocol was performed, the patient had been prepped and draped in standard sterile fashion. The patient was injected with indocyanine green. A 5 mm 0 degrees laparoscopic trocar entry was performed along the left upper quadrant. The abdomen insufflated to 15 mmHg pressure which was tolerated well. Diagnostic laparoscopy demonstrated no injury to bowel viscera or mesentery. The liver surface was unremarkable. Next, two 8 mm robotic ports were placed along the right upper abdomen. The camera 8-mm port was maintained along the epigastrium. Another 8 mm port was placed along the left upper abdominal wall after exchanging the 5 mm port. Please note that the ports were placed at least 10 to 15 cm away from the target anatomy of the gallbladder. The robot was docked along the left lateral abdomen. The patient was repositioned in reverse Trendelenburg position. Using a grasper for arm 3, a grasper for arm 4, including hook cautery for arm 1, the robotic system was docked and primed as described. Instruments were interchanged by the mortgage loan assistant including hook cautery, Bovie cautery and clip appliers. I had sat at the console. The gallbladder was scarred with peritoneal adhesions. Lysis of adhesions was performed to free the gallbladder from the surrounding tissues. Next attention was brought to the infundibulum and cystic structures. The infundibulum and cystic duct were dissected free from surrounding tissues. The cystic duct was isolated. FIREFLY was used to identify the cystic artery and cystic structures. A critical view of safety was obtained. Large PLASTIC clips were used throughout the entire case. Using a clip manager eligibility, 2 clips were placed at the junction of the infundibulum and cystic duct. The cystic duct was divided between clips. Next, the cystic artery was similarly clipped and cauterized. Electro-Bovie cautery was used to remove the gallbladder from the hepatic fossa. Hemostasis was checked and found to be adequate. The robot was undocked. I re-scrubbed into the case. Using a 10 mm Endo Catch bag via the left upper quadrant incision, the specimen was removed from the abdominal cavity. All pneumoperitoneum instruments were evacuated from the abdominal cavity. The incisions were reapproximated using 4-0 Monocryl in an interrupted subcuticular fashion. Fascial defects were less than 8 mm in size. Please note along the trocar sites, local anesthetic was placed as a field block prior to insertion of all instruments. Liquid glue was applied to the skin. At the end of the procedure needle, sponge, and instrument count had been verified correct by the surgical supply assistant. The patient was transferred to postanesthesia care unit in stable condition. Intraoperative films were shared with the patient's family. Plan - Discharge Summary Discharge Rx Participant: No New Discharge Prescriptions: New Simethicone [Gas-X] 125 mg PO AC-TID PRN #20 capsule PRN Reason: Pain Ibuprofen [Motrin] 600 mg PO Q8HR PRN #30 tab PRN Reason: Pain Acetaminophen Tab [Tylenol Tab] 1,000 mg PO Q6HR PRN #30 tablet PRN Reason: Pain Continue Rosuvastatin Calcium 5 mg PO DAILY Discharge Medication List Rosuvastatin Calcium 5 mg PO DAILY 08/12/23 [History] Acetaminophen Tab [Tylenol Tab] 1,000 mg PO Q6HR PRN #30 tablet 08/13/23 [Rx] Ibuprofen [Motrin] 600 mg PO Q8HR PRN #30 tab 08/13/23 [Rx] Simethicone [Gas-X] 125 mg PO AC-TID PRN #20 capsule 08/13/23 [Rx] Follow up Appointment(s)/Referral(s): Ildefonso Blas DO [Primary Care Provider] - 1-2 days Paige Castaneda MD [STAFF PHYSICIAN] - 08/18/23 Patient Instructions/Handouts: Low Fat Diet (ED), Laparoscopic Cholecystectomy (DC) Activity/Diet/Wound Care/Special Instructions: TELEHEALTH - DR WILL CALL YOU BETWEEN 8 am to 8 pm Recommend low-fat diet for the next 2 days. No lifting over 10 pounds in 2 weeks until Jul. May shower. No bath tub soaks for two weeks until Jul. Diet as tolerated. Use Tylenol, simethicone and ibuprofen or Aleve scheduled for the next 24-48 hours for best pain relief. Use ice along incisions for today to prevent swelling. Discharge Disposition: HOME SELF-CARE
--- NOTE | 2023-08-13 16:35 | P.CONS ---
History of Present Illness - Reason for Consult Consult date: 08/13/23 Medical management Requesting physician: Paige Castaneda - Chief Complaint Right upper quadrant abdominal pain - History of Present Illness This is a 58-year-old gentleman with past medical history significant for obesity, nicotine dependence, presented to the ER with complaints of right upper quadrant abdominal pain. He reports yesterday afternoon he consumed 2 coney dogs, cookies and 4 beers. Woke up at 2:30 in the AM with significant right upper quadrant pain, accompanied by bloating. Recently saw his PCP for similar complaints and was referred to a general surgeon. Bladder ultrasound reported evidence of gallstones, positive Corley sign, correlate for acute cholecystitis. KUB reported nonspecific bowel gas pattern, nonacute. Chest x-ray reported nonacute. denies chest pain, palpitations or shortness of breath. Troponins negative. Lipase 112, LFTs normal. afebrile, WBC 7.6, hemoglobin 14.6, platelets 212, electrolytes within normal limits, creatinine 1.03. Review of Systems ROS Statement: Those systems with pertinent positive or pertinent negative responses have been documented in the HPI. ROS Other: All systems not noted in ROS Statement are negative. Past Medical History Past Medical History: No Reported History History of Any Multi-Drug Resistant Organisms: None Reported Past Surgical History: Orthopedic Surgery Additional Past Surgical History / Comment(s): hand Past Anesthesia/Blood Transfusion Reactions: No Reported Reaction Past Psychological History: No Psychological Hx Reported Past Alcohol Use History: Occasional Past Drug Use History: None Reported Medications and Allergies Home Medications Medication Instructions Recorded Confirmed Type Rosuvastatin Calcium 5 mg PO DAILY 08/12/23 08/12/23 History Acetaminophen Tab [Tylenol Tab] 1,000 mg PO Q6HR PRN #30 tablet 08/13/23 Rx Ibuprofen [Motrin] 600 mg PO Q8HR PRN #30 tab 08/13/23 Rx Simethicone [Gas-X] 125 mg PO AC-TID PRN #20 capsule 08/13/23 Rx Allergies Allergy/AdvReac Type Severity Reaction Status Date / Time No Known Allergies Allergy Verified 08/12/23 10:07 Physical Exam Vitals: Vital Signs Temp Pulse Resp BP Pulse Ox 08/13/23 16:15 82 12 139/68 100 08/13/23 16:07 97 F L 92 12 155/85 96 08/13/23 13:31 97.6 F 61 16 135/71 97 08/13/23 07:14 98.0 F 73 18 106/69 97 08/13/23 02:29 98.1 F 72 18 105/67 98 08/12/23 20:00 16 08/12/23 19:38 97.8 F 57 L 18 108/66 97 Intake and Output 08/13/23 08/13/23 08/13/23 06:59 14:59 22:59 Intake Total 1000 500 200 Output Total 5 Balance 1000 500 195 Intake: IV 500 200 Intake, IV Titration 1000 Amount Piperacillin-Tazobactam 3 100 .375 gm In Sodium Chloride 0.9% 100 ml @ 25 mls/hr IVPB Q8H NARCISO Rx#: [id number] Sodium Chloride 0.9% 1, 900 000 ml @ 75 mls/hr IV . [id number] NARCISO Rx#:[id number] Output: Estimated Blood Loss 5 Other: # Voids 3 PHYSICAL EXAM: VITAL SIGNS: [As above] GENERAL: Alert and oriented x 3, sitting up in bed, no acute distress HEENT: Atraumatic, normocephalic conjunctivae normal. eyes normal. NECK: Supple, no JVD. No thyroid enlargement. No LNs CARDIOVASCULAR: S1, S2 regular.. No murmur RESPIRATION: Unlabored, equal air entry ,breath sounds diminished in the bases. ABDOMEN: Soft, nondistended, tender right upper quadrant, +BS. LEGS: No edema. no swelling NERVOUS SYSTEM: Cranial N 2-12 grossly normal.No focal deficits. Strength and sensation grossly intact. Skin: Warm and dry, no rash Results CBC & Chem 7: 08/13/23 07:22 08/13/23 07:22 Labs: Abnormal Lab Results - Last 24 Hours (Table) 08/13/23 08/13/23 Range/Units 07:22 07:22 RBC 4.08 L (4.40-5.60) X 10*6/uL MCV 98.0 H (80.0-97.0) FL BUN/Creatinine Ratio 8.15 L (12.00-20.00) Ratio Assessment and Plan Assessment: Right upper quadrant abdominal pain, gallbladder ultrasound reporting cholelithiasis with possible acute cholecystitis Obesity, BMI 30 Nicotine dependence Thank you for the consult Plan: Continue on current medication regimen, monitoring and symptomatic treatment. Labs and echo pending NPO, IV fluid hydration, IV antibi otics.scheduled for cholecystectomy today. Smoking cessation reinforced. The impression and plan of care has been dictated as directed. : I performed a history and examination of this patient, discussed the same with the dictator. I agree with the dictator's note ,documented as a scribe. Any additional findings or plans will be noted.
[2023-08-13] MEDS: TAMSULOSIN 0.4 MG CAP.ER.24H PO STA (17:54)
[2023-08-13] MEDS: ACETAMINOPHEN IV (For NPO) 1,000 MG in EMPTY BAG 1 BAG IVPB ONE (17:55)
[2023-08-13] MEDS ORDERED: KETOROLAC 15 MG/ML 1 ML VIAL IVP SCH (18:00)
[2023-08-13 18:53] VITALS: BP 158/110; PULSE 75; RESP 19; TEMP 97.6
[2023-08-14] MEDS ORDERED: ENOXAPARIN 30 MG/0.3 ML SYRINGE SQ SCH (09:00)
== END 2023-08-13 19:30 | disposition home or self-care (01) ==
LOC: EC 06:26 → 4SSUR 09:35
PROVIDERS: ADMIT Surgery Plastic and Reconstructive Surgery; ATTEND Surgery Plastic and Reconstructive Surgery
DX: K80.10 Calculus of gallbladder with chronic cholecystitis without obstruction (principal); K66.0 Peritoneal adhesions (postprocedural) (postinfection); I27.20 Pulmonary hypertension, unspecified; E78.5 Hyperlipidemia, unspecified; E66.9 Obesity, unspecified; F17.210 Nicotine dependence, cigarettes, uncomplicated; Z68.29 Body mass index [BMI] 29.0-29.9, adult; Z79.899 Other long term (current) drug therapy
CPT/HCPCS: 47562; S2900; 36415; 71045; 74018; 76705; 80048; 80053; 82150; 83690; 84484; 85025; 87040; 88304; 93005; 93306; 96361; 96365; 96366; 96375; 99285